=== PATIENT | female | born 2000 | race Caucasian/White ===

== ENCOUNTER 2021-03-12 14:32 | Emergency (ER) | payer OTHER ==
[~2021-03-12] VITALS: Ht 162.6 cm; Wt 75.0 kg
[2021-03-12 14:41] VITALS: BP 142/75; TEMP 98
[2021-03-12 17:23] VITALS: PULSE 83
== END 2021-03-12 17:23 | disposition home or self-care (01) ==
LOC: COL.ER 14:32
DX: M79.672 Pain in left foot (principal)

== ENCOUNTER 2021-12-04 21:00 | Emergency (ER) | payer OTHER ==
[~2021-12-04] VITALS: Ht 162.6 cm; Wt 72.7 kg
[2021-12-04 21:03] VITALS: TEMP 99.1
[2021-12-04 21:37] VITALS: BP 133/79; PULSE 99
== END 2021-12-04 21:38 | disposition home or self-care (01) ==
LOC: COL.ER 21:00
DX: H16.001 Unspecified corneal ulcer, right eye (principal)